=== PATIENT | female | born 1980 | race Caucasian/White ===

== ENCOUNTER 2020-12-28 16:43 | Emergency (ER) | payer BC ==
[2020-12-28 16:57] VITALS: BP 130/80
--- NOTE | 2020-12-28 17:27 | ED Physician Documentation ---
PD HPI SKIN - Stated complaint Stated Complaint: RASH - Chief complaint Chief Complaint: General - History obtained from History obtained from: Patient - History of Present Illness Timing - onset: How many days ago (onset pain right upper face and scalp 4 days ago, with some rash starting 2 days ago. Had telehealth appt and Dx shingles and Rx Valacyclovir. Having worse rash/pain still and talked to PMD. Referred to ER for eval and other meds. Denies feeling pain on eye itself. Mild light sensitive. Nose okay.) Timing - duration: Days Timing - details: Gradual onset, Still present Location: Face (right forehead and frontal scalp, eyelids.) Quality / character: Painful, Vesicular. No: Draining Review of Systems Constitutional: reports: Fever, Chills Nose: denies: Rhinorrhea / runny nose, Congestion Throat: denies: Sore throat Respiratory: denies: Cough GI: reports: Nausea Neurologic: reports: Generalized weakness. denies: Focal weakness, Numbness, Confused, Altered mental status, Headache PD PAST MEDICAL HISTORY - Past Medical History Cardiovascular: None Neuro: None Endocrine/Autoimmune: None - Present Medications Home Medications: Ambulatory Orders Medication Instructions Recorded Confirmed Amitriptyline [Elavil] 25 mg PO QPM #30 tablet 12/28/20 Cetirizine [ZyrTEC] 10 mg PO DAILY 12/28/20 12/28/20 Fluticasone [Flonase] 2 spray GUSTABO DAILY 12/28/20 12/28/20 Oxycodone HCl/Acetaminophen 1 each PO Q6H PRN #20 tablet 12/28/20 [Percocet 5-325 mg Tablet] Valacyclovir HCl [Valtrex] 1,000 mg PO TID 12/28/20 12/28/20 armodafiniL [Nuvigil] 250 mg PO DAILY 12/28/20 12/28/20 dexAMETHasone [Decadron] 4 mg PO DAILY #7 tablet 12/28/20 lamoTRIgine [LaMICtal] 100 mg PO DAILY 12/28/20 12/28/20 - Allergies Allergies/Adverse Reactions: Allergies Allergy/AdvReac Type Severity Reaction Status Date / Time No Known Drug Allergies Allergy Verified 12/28/20 16:51 PD ED PE NORMAL - Vitals Vital signs reviewed: Yes - General General: Alert and oriented X 3, Well developed/nourished, Other (appears in pain) - HEENT HEENT: PERRL (some light sensitive directly on right, but not consensually from left light activation. Nose not tender (negative Hutchinsons's sign). Anterior chamber appears normal. ), EOMI - Neck Neck: Supple, no meningeal sign, No adenopathy - Cardiac Cardiac: RRR, No murmur - Respiratory Respiratory: Clear bilaterally - Derm Derm: Normal color, Warm and dry, Other (blistered red, sensitive rash on forehead right and just across midline to the left, right frontal scalp and right preauricular. Also red on eyelids with mild swelling. ) - Neuro Neuro: Alert and oriented X 3, No motor deficit, Normal speech Results - Vitals Vitals: Vital Signs - 24 hr 12/28/20 16:52 Temperature 36.5 C Heart Rate 72 Respiratory 16 Rate Blood Pressure 130/80 O2 Saturation 98 Oxygen O2 Source Room air PD MEDICAL DECISION MAKING - ED course Complexity details: considered differential (has shingles on Valacycloivr with increasing symptoms of pain. Can add meds. ), d/w patient Departure - Departure Disposition: 01 Home, Self Care Clinical Impression: Face pain Shingles Qualifiers: Herpes zoster complications: without complications Qualified Code(s): B02.9 - Zoster without complications Condition: Stable Record reviewed to determine appropriate education?: Yes Instructions: ED Shingles Follow-Up: LEA DELUCA MD [Primary Care Provider] - Prescriptions: dexAMETHasone [Decadron] 4 mg PO DAILY #7 tablet Amitriptyline [Elavil] 25 mg PO QPM #30 tablet Oxycodone HCl/Acetaminophen [Percocet 5-325 mg Tablet] 1 each PO Q6H PRN #20 tablet PRN Reason: pain Comments: Continue the Lorri acyclovir. To that add dexamethasone steroid daily for the next week. Commonly we will also add a medicine to help with nerve pain. I prescribed low-dose amitriptyline to take nightly for the next several weeks. Use Tylenol every 4-6 hours or oxycodone (Percocet) if needed for worse pain. Follow-up with your primary care if not improving well enough with this combination over the next few days. Discharge Date/Time: 12/28/20 19:14
[2020-12-28] MEDS ORDERED: CHERRY SYRUP 10 ML UDC PO ONE (18:02)
[2020-12-28] MEDS ORDERED: ACETAMINOPHEN 325 MG TABLET PO STA (18:02)
[2020-12-28] MEDS ORDERED: KETOROLAC 30 MG/ML VIAL IM STA (18:02)
[2020-12-28] MEDS: DEXAMETHASONE 10 MG/ML VIAL PO STA (18:15)
== END 2020-12-28 19:14 | disposition home or self-care (01) ==
LOC: ED 16:43
DX: B02.9 Zoster without complications (principal)
CPT/HCPCS: 96372; 99283; 99284; A9270

== ENCOUNTER 2022-08-08 11:08 | Outpatient (CLI) | payer BC ==
--- NOTE | 2022-08-08 09:35 | XRAY Report ---
PROCEDURE: Chest 2 View X-Ray INDICATIONS: CHRONIC COUGH TECHNIQUE: 2 views of the chest were acquired. COMPARISON: None FINDINGS: Surgical changes and devices: None. Lungs and pleura: No pleural effusions or pneumothorax. Lungs are clear. Mediastinum: Mediastinal contours are normal. Heart size is normal. Bones and chest wall: No suspicious bony abnormalities. Soft tissues appear unremarkable. IMPRESSION: No acute cardiopulmonary abnormality. Reviewed by: Elder Pedro on 08/08/2022 9:34 AM [facility] Approved by: Elder Pedro on 08/08/2022 9:34 AM [facility] Station ID: [id number]
== END 2022-08-08 11:09 | disposition home or self-care (01) ==
LOC: DI.S 11:08
PROVIDERS: ATTEND Physician Assistant
DX: R05.3 Chronic cough (principal)